=== PATIENT | female | born 1945 | race Caucasian/White ===

== ENCOUNTER 2018-08-29 18:40 | Emergency (ER) | payer OTHER, MEDICARE, BC ==
[2018-08-29] MEDS ORDERED: fentaNYL 100 MCG/2 ML SDV IV ONE (18:41)
[2018-08-29] MEDS ORDERED: Sodium Chloride 0.9% 1,000 ML IV ONE (18:41)
[2018-08-29] MEDS ORDERED: Lactated Ringers 1,000 ML IV ONE (18:41)
[2018-08-29] MEDS ORDERED: fentaNYL 100 MCG/2 ML SDV ONE (19:10)
[2018-08-29] MEDS ORDERED: fentaNYL 100 MCG/2 ML SDV IVPUSH ONE (19:10)
[2018-08-29 20:22] LABS: SODIUM,NA 137 mmol/L (135-145)
[2018-08-29 20:23] LABS: ANION GAP 17.2; CHLORIDE,CL 104 mmol/L (101-111)
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
== END 2018-08-29 19:43 ==
LOC: DL.ED 18:40
DX: S32.810A Multiple fractures of pelvis with stable disruption of pelvic ring, initial encounter for closed fracture (principal); S82.891A Other fracture of right lower leg, initial encounter for closed fracture; S00.83XA Contusion of other part of head, initial encounter; S00.532A Contusion of oral cavity, initial encounter; S40.011A Contusion of right shoulder, initial encounter; S30.1XXA Contusion of abdominal wall, initial encounter; R09.02 Hypoxemia; R07.9 Chest pain, unspecified; I10 Essential (primary) hypertension; V49.50XA Passenger injured in collision with unspecified motor vehicles in traffic accident, initial encounter
CPT/HCPCS: 36415; 36430; 51702; 71045; 72170; 80053; 80305; 81001; 85025; 85610; 85730; 86850; 86900; 86901; 86920; 86922; 87086; 87088; 87186; 96365; 96368; 96375; 96376; 99285; G0390; G0480; P9016; J3010; J7030; J7120

== ENCOUNTER 2020-06-16 21:26 | Emergency (ER) | payer MEDICARE, BC ==
[2020-06-16 22:13] LABS: CHLORIDE,CL 103 mmol/L (98-107); SODIUM,NA 146 mmol/L (136-145)
--- NOTE | 2020-06-16 22:27 | CR ---
PROCEDURE INFORMATION: Exam: XR Chest Exam date and time: 06/16/2020 10:04 PM Age: 74 years old Clinical indication: Chest pain; Additional info: Chest epigastric pain TECHNIQUE: Imaging protocol: XR of the chest Views: 1 view. Total images: 1 COMPARISON: CR Chest 1V Frontal 08/29/2018 7:12 PM FINDINGS: Lungs: Unremarkable. No consolidation. Pleural spaces: Unremarkable. No pleural effusion. No pneumothorax. Heart/Mediastinum: Borderline to mild cardiomegaly. Vasculature: Tortuous thoracic aorta. Bones/joints: Unremarkable. IMPRESSION: No acute process.
[2020-06-16] MEDS ORDERED: Iopamidol 755 Mg/ML 100 ML Bottle IVPUSH ONE (22:44)
[2020-06-16] MEDS ORDERED: Iopamidol 612 MG/ML 100 ML Bottle IVPUSH ONE (23:18)
--- NOTE | 2020-06-16 23:54 | CT ---
PROCEDURE INFORMATION: Exam: CT Abdomen And Pelvis With Contrast Exam date and time: 06/16/2020 10:54 PM Age: 74 years old Clinical indication: Abdominal pain; Additional info: Epigastric pain TECHNIQUE: Imaging protocol: Computed tomography of the abdomen and pelvis with contrast. Radiation optimization: All CT scans at this facility use at least one of these dose optimization techniques: automated exposure control; mA and/or kV adjustment per patient size (includes targeted exams where dose is matched to clinical indication); or iterative reconstruction. Contrast material: [id number]; Contrast volume: 75 ml; Contrast route: INTRAVENOUS (IV); COMPARISON: No relevant prior studies available. FINDINGS: Lungs: Slight dependent atelectasis in the right lung. Liver: Unremarkable liver. Gallbladder and bile ducts: Foci of dependent increased density in the gallbladder suggesting noncalcified stones or sludge. Slight extrahepatic biliary ductal dilatation. Suspicion of an area of increased density within the distal common bile duct. Pancreas: Unremarkable pancreas. Spleen: No splenomegaly. Adrenal glands: No adrenal mass. Kidneys and ureters: 2.3 cm water density, nonenhancing right renal mass; similar appearance of smaller masses in the kidneys, including at least 2 right peripelvic cysts. No hydronephrosis. Stomach and bowel: Ileocolic anastomosis in the right upper abdomen. No obstruction. Suspicion of wall thickening in much of the sigmoid colon, but no haziness in the fat along it. Possible haziness in the fat around the anus. Appendix: Surgical absence. Intraperitoneal space: No free air. Vasculature: Atherosclerosis. No aortic aneurysm. Lymph nodes: No enlarged nodes. Urinary bladder: Unremarkable as visualized. Reproductive: Unremarkable as visualized. Bones/joints: Developmental variant of 6 lumbar vertebral bodies. Old compression fractures. Degeneration of several discs. Mild S-shaped lumbar scoliosis. Healed left pubic fractures. Old left rib fractures. Soft tissues: Patchy slight stranding and haziness in the right abdominal and pelvic wall subcutaneous fat. Possible minimal epigastric ventral hernia containing fat. IMPRESSION: 1. Densities in the gallbladder suggesting noncalcified stones. Slight extrahepatic biliary ductal dilatation along with suspicion of choledocholithiasis. 2. Possible haziness in the fat around the anus and thickening of the wall in much of the sigmoid colon. No haziness in the fat around the sigmoid colon, but colitis not excluded. Ileocolic anastomosis in the right upper abdomen. 3. Renal masses consistent with simple cysts. Other findings detailed above. COMMENTS: Consistent with the [place] [employer]'s Incidental Findings Committee white paper (J Am Rosibel Radiol 2018): Any incidental renal lesion less than 1 cm or classified as too small to characterize, or any incidental cystic renal lesion characterized as simple-appearing, is likely benign. No follow-up imaging is recommended for these lesions per consensus recommendations based on imaging criteria.
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
== END 2020-06-17 00:25 | disposition home or self-care (01) ==
LOC: DL.ED 21:26
DX: K80.20 Calculus of gallbladder without cholecystitis without obstruction (principal); E87.6 Hypokalemia; K52.9 Noninfective gastroenteritis and colitis, unspecified; E11.9 Type 2 diabetes mellitus without complications; E03.9 Hypothyroidism, unspecified; Z88.5 Allergy status to narcotic agent; Z88.8 Allergy status to other drugs, medicaments and biological substances; Z79.84 Long term (current) use of oral hypoglycemic drugs
CPT/HCPCS: 36415; 71045; 74177; 80053; 81001; 84484; 85025; 85379; 87086; 87088; 87186; 93005; 93010; 99283; 99285; Q9967

== ENCOUNTER 2020-08-20 04:07 | Emergency (ER) | payer MEDICARE, BC ==
[2020-08-20] MEDS ORDERED: Ondansetron 4 MG/2 ML SDV IVPUSH ONE (04:37)
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
[2020-08-20] MEDS ORDERED: HYDROmorphone 0.5 MG/0.5 ML Syringe IVPUSH ONE (04:51)
[2020-08-20 05:14] LABS: ANION GAP 16.5 mEq/L (7-13)
[2020-08-20] MEDS ORDERED: Iopamidol 612 MG/ML 100 ML Bottle IVPUSH ONE (05:21)
--- NOTE | 2020-08-20 07:16 | CT ---
PROCEDURE INFORMATION: Exam: CT Abdomen And Pelvis With Contrast Exam date and time: 08/20/2020 6:13 AM Age: 75 years old Clinical indication: Abdominal pain; Additional info: Upper abdominal pain TECHNIQUE: Imaging protocol: Computed tomography of the abdomen and pelvis with contrast. Radiation optimization: All CT scans at this facility use at least one of these dose optimization techniques: automated exposure control; mA and/or kV adjustment per patient size (includes targeted exams where dose is matched to clinical indication); or iterative reconstruction. Contrast material: ISOVUE 300; Contrast volume: 75 ml; Contrast route: INTRAVENOUS (IV); COMPARISON: CT Abdomen Pelvis w Cont 06/16/2020 10:54 PM FINDINGS: Lungs: Included lung bases demonstrate compressive type atelectases right slightly greater than left. Liver: Normal. No mass. Gallbladder and bile ducts: Layering stones/sludge within the gallbladder lumen. Gallbladder is distended to a diameter of 4.4 cm. There is small amount pericholecystic fluid and irregular circumferential gallbladder wall thickening. Common bile duct is dilated to a diameter of 12.0 mm. No ductal calcifications are identified. Pancreas: Normal. No ductal dilation. Spleen: Normal. No splenomegaly. Adrenal glands: Normal. No mass. Kidneys and ureters: There is a 5.0 mm obstructing proximal left ureteral calculus resulting in moderate left hydroureteronephrosis. There is circumferential wall thickening of the left ureter at the site of obstruction. There are bilateral renal cortical nodules likely renal cysts, the largest measuring 2.2 cm. There is a right upper pole 11.0 mm renal cyst/solid. Stomach and bowel: There are anastomotic sutures associated with the distal ascending colon/hepatic flexure. Appendix: Appendix is not visualized likely related to prior surgical resection. Intraperitoneal space: Unremarkable. No free air. No significant fluid collection. Vasculature: There are multiple pelvic phleboliths. The aorta demonstrates moderate atherosclerotic calcification. Lymph nodes: Unremarkable. No enlarged lymph nodes. Urinary bladder: Bladder is near completely collapsed without bladder calculi. Reproductive: Uterus and adnexal structures are unremarkable. Bones/joints: Unremarkable. No acute fracture. Soft tissues: Unremarkable. Other findings: Rotatory levoscoliosis associated with moderate degenerative change. IMPRESSION: 1. Layering sludge/weakly calcified stones in the dependent gallbladder lumen associated with gallbladder wall thickening and pericholecystic fluid. There is mild biliary distension without intraluminal ductal calcifications. Findings may be related to acute cholecystitis. Please correlate with the clinical setting. Consider right upper quadrant ultrasound as clinically indicated. 2. There is an obstructing 5.0 mm proximal left ureteral calculus resulting in moderate left hydroureteronephrosis. No significant perinephric edema. Findings may be chronic. 3. Right renal cortical nodules. A and 11 mm right upper pole renal cortical nodule may be complex cystic. Consider renal ultrasound. 4. Postoperative changes from prior right hemicolectomy and bowel anastomosis without acute findings. COMMENTS: Consistent with the [employer]'s Incidental Findings Committee white paper (J Am Rosibel Radiol 2018): Any incidental renal lesion less than 1 cm or classified as too small to characterize, or any incidental cystic renal lesion characterized as simple-appearing, is likely benign. No follow-up imaging is recommended for these lesions per consensus recommendations based on imaging criteria.
[2020-08-20] MEDS ORDERED: Piperacillin/Tazobactam 3.375 GM in Sodium Chloride 0.9% 100 ML IV ONE (07:19)
[2020-08-20] MEDS ORDERED: Sodium Chloride 0.9% 1,000 ML IV ONE (07:39)
== END 2020-08-20 08:17 ==
LOC: DL.ED 04:07
DX: N13.2 Hydronephrosis with renal and ureteral calculous obstruction (principal); K80.62 Calculus of gallbladder and bile duct with acute cholecystitis without obstruction; E78.00 Pure hypercholesterolemia, unspecified; E11.9 Type 2 diabetes mellitus without complications; E03.9 Hypothyroidism, unspecified; I10 Essential (primary) hypertension; Z88.6 Allergy status to analgesic agent; Z88.5 Allergy status to narcotic agent; Z79.899 Other long term (current) drug therapy; Z79.84 Long term (current) use of oral hypoglycemic drugs
CPT/HCPCS: 36415; 74177; 80053; 81001; 81003; 82150; 83605; 83690; 85025; 87086; 87088; 87186; 96365; 96375; 99284; 99285-25; J1170; J2405; J2543; J7030; Q9967